=== PATIENT | female | born 1995 | race Asian ===

== ENCOUNTER 2018-04-01 13:58 | Emergency (ER) | payer BC ==
[~2018-04-01] VITALS: Ht 160 cm; Wt 46.3 kg
[2018-04-01] MEDS ORDERED: METRONIDAZOLE500 MG ORAL (15:16)
[2018-04-01 15:22] VITALS: BP 130/94
[2018-04-01 15:23] VITALS: BP 130/94
--- NOTE | 2018-04-01 16:52 | Emergency Room Report ---
History of Present Illness General Chief Complaint: Foreign Body Source: Patient Present Illness HPI 22-year-old female presents ED for evaluation. Patient notes there is a tampon stuck. States she inserted a tampon yesterday and has been unable to get it out today. States that part of the tampon came out. Pain is dull, 8 out of 10 , nonradiating. Denies any discharge. Denies any fevers or chills. No other aggravating relieving factors. Denies any other associated symptoms Allergies: Coded Allergies: No Known Allergies (Unverified , 04/01/18) Patient History Past Medical History: none Past Surgical History: none Pertinent Family History: none Social History: Denies: smoking, alcohol use, drug use Last Menstrual Period: now Now: No Immunizations: UTD Reviewed Nursing Documentation: PMH: Agreed; PSxH: Agreed Nursing Documentation-PMH Past Medical History: No Stated History Review of Systems All Other Systems: negative except mentioned in HPI Physical Exam Vital Signs Date Time Temp Pulse Resp B/P (MAP) Pulse Ox O2 Delivery O2 Flow Rate FiO2 04/01/18 14:19 98.8 118 18 130/94 98 Room Air 98.8 Sp02 EP Interpretation: reviewed, normal General Appearance: no apparent distress, alert, GCS 15, non-toxic Head: normocephalic, atraumatic Eyes: bilateral eye normal inspection, bilateral eye PERRL ENT: hearing grossly normal, normal pharynx, no angioedema, normal voice Neck: full range of motion, supple/symm/no masses Respiratory: chest non-tender, lungs clear, normal breath sounds, speaking full sentences Cardiovascular #1: regular rate, rhythm, no edema Cardiovascular #2: 2+ carotid (R), 2+ carotid (L), 2+ radial (R), 2+ radial (L) , 2+ dorsalis pedis (R), 2+ dorsalis pedis (L) Gastrointestinal: normal bowel sounds, non tender, soft, non-distended, no guarding, no rebound Rectal: deferred Genitourinary: normal inspection, no CVA tenderness, other - digital media analyst present , no evidence of foreign body in vaginal canal or cervix Musculoskeletal: back normal, gait/station normal, normal range of motion, non- tender Neurologic: alert, oriented x3, responsive, motor strength/tone normal, sensory intact, speech normal Psychiatric: judgement/insight normal, memory normal, mood/affect normal, no suicidal/homicidal ideation Reflexes: 3+ bicep (R), 3+ bicep (L), 3+ tricep (R), 3+ tricep (L), 3+ knee (R) , 3+ knee (L) Skin: normal color, no rash, warm/dry, well hydrated Lymphatic: no adenopathy Medical Decision Making Diagnostic Impression: Primary Impression: Retained tampon Qualified Codes: T19.2XXA - Foreign body in vulva and vagina, initial encounter ER Course 22 yo F presents to ED c/o retained tampon Differential-foreign body, cellulitis, abscess Patient placed on stretcher. After initial history, physical exam reveals a young female in no acute distress. Manufacturing Manager present. Pelvic exam performed using speculum. I was unable to visualize any foreign body. Multiple attempts made and some unable to visualize. Unable to feel with digital exam. Discussed findings with Dr. Valles. He agrees that patient will require follow-up at this time. Recommends that patient be started on Flagyl prophylactically. He can see patient in his clinic tomorrow I discussed findings with the patient. It is possible that the tampon is no longer there versus the option of it is deeper then could be visualized. Given that patient appears afebrile, nontoxic, patient can be discharged to home. She agrees to follow-up with [facility] tomorrow Diagnosis- retained tampon Stable discharged to home with prescription for Flagyl. Followup with OBGYN. Return to ED if symptoms recur or worsen Last Vital Signs Date Time Temp Pulse Resp B/P (MAP) Pulse Ox O2 Delivery O2 Flow Rate FiO2 04/01/18 15:23 98.8 79 18 130/94 98 Room Air 98.8 Status: improved Disposition: HOME, SELF-CARE Condition: Stable Scripts Metronidazole* (FLAGYL*) 500 Mg Tablet 500 MG ORAL BID for 7 Days, #14 TAB Prov: Johnnie Avalos MD 04/01/18 Referrals: Jim Valles MD NOT CHOSEN [facility]/,REFERRING (PCP) Patient Instructions: Toxic Shock Syndrome Additional Instructions: see Dr Valles in his office tomorrow between 1:30 and 3:30 call office in morning and say you were asked by Dr Valles to come in [address] [facility], [id number] at [facility] and Johnnie Dobson MD Apr 01, 2018 16:52
== END 2018-04-01 15:27 | disposition home or self-care (01) ==
LOC: EMR 14:42
DX: T19.2XXA Foreign body in vulva and vagina, initial encounter (principal); W45.8XXA Other foreign body or object entering through skin, initial encounter; Y92.89 Other specified places as the place of occurrence of the external cause
CPT/HCPCS: 99283